=== PATIENT | female | born 1970 | race Caucasian/White ===

== ENCOUNTER 2022-01-14 19:48 | Outpatient (CLI) | payer OTHER, SELFPAY ==
--- NOTE | 2022-01-14 19:52 | US_ITS ---
STUDY: THYROID ULTRASOUND REASON FOR EXAM: Female, 51 years old. NODULE-RT TECHNIQUE: Ultrasound evaluation of the thyroid was performed with real-time and static long-scale imaging. COMPARISON: None. FINDINGS: RIGHT LOBE: The right lobe of the thyroid gland measures 4.8 cm x 2.7 cm x 2 cm. There is a homogeneous echotexture. There is a 3.3 cm x 2.6 x 1.7 cm complex solid and cystic nodule in the midpole of the right lobe. Biopsy is recommended. LEFT LOBE: The left lobe of the thyroid gland measures 3.2 cm x 0.9 cm x 0.7 cm. There is a homogeneous echotexture. There is a 1.2 cm x 0.7 cm x 0.6 cm solid and cystic nodule in the lower pole. Adjacent to this, there is a 6 mm x 6 mm x 4 mm solid/cystic nodule. ISTHMUS: The isthmus measures 3 mm. There is a 1.3 cm x 1 cm x 0.5 cm benign-appearing lymph node in the right cervical region. US/Thyroid IMPRESSION: Dominant complex solid and cystic nodule in the midportion of the right lobe of the thyroid. Biopsy recommended. Electronically Signed: Washington Martinez MD at 14:27 EDT ,
== END 2022-01-14 23:59 | disposition home or self-care (01) ==
LOC: US 19:51
PROVIDERS: Visit Provider Family Medicine
DX: E04.1 Nontoxic single thyroid nodule (principal); E03.9 Hypothyroidism, unspecified
CPT/HCPCS: 76536

== ENCOUNTER → 2022-02-09 | Outpatient (CLI) | payer OTHER, SELFPAY ==
[2022-02-09 15:06] LABS: Absolute Lymphocyte Count 2.46 X10^3/uL (0.83-4.51); Absolute Neutrophil Count 5.8 X10^3/uL (2.0-7.7); Basophil# 0.04 X10^3/uL; Basophil% 0.4 % (0-1); Eosinophil# 0.15 X10^3/uL; Eosinophils% 1.7 % (0-5); Lymphocyte # 2.46 X10^3/ul (0.83-4.51); Lymphocyte % 27.5 % (19-41); Mean Corp Hgb Conc 33.3 g/dL (32-36); Mean Corpuscular Hgb 32.3 pg (27.0-32.0); Mean Corpuscular Volume 96.8 fL (81-99); Mean Platelet Vol. 9.1 fl (6.2-12.0); Monocyte# 0.48 X10^3/uL; Monocyte% 5.4 % (0-10); NRBC Flagged by Analyzer 0 % (0-5); Neutrophil # 5.76 X10^3/uL (2.7-7.7); Neutrophil % 64.6 % (47-70); Platelet Count 348 K/mm3 (150-450); RBC Distribution Width CV 12.5 % (11.6-14.6); RBC Distribution Width SD 44.5 fl (35.1-43.9); Red Blood Count 4.03 M/mm3 (4.2-5.4); White Blood Count 8.9 K/mm3 (4.4-11.0)
[2022-02-09 15:37] LABS: Vitamin B12 1087 pg/mL (211-911); Vitamin D,25 Hydroxy 31.6 ng/mL
[2022-02-09 15:42] LABS: ALB/GLOB Ratio 0.9 RATIO (0.9-2.4); AST(SGOT) 14 U/L (15-37); Alanine Aminotransfer ALT/SGPT 25 U/L (13-56); Albumin, Serum 3.6 g/dL (3.2-5.0); Alkaline Phosphatase 63 U/L (45-117); Anion Gap 6 (5-15); BUN 12 mg/dL (7-18); BUN/Creat Ratio 19.1 RATIO (10-20); Calcium,Total 8.9 mg/dL (8.5-10.1); Chloride 107 mmol/L (98-107); Cholesterol 171 mg/dL (200); Creatinine, Serum 0.63 mg/dL (0.55-1.02); EST Glomerular Filtration Rate 107 mL/min (>60); Est Glom Filt Rate - Afr Amer 129 mL/min (>60); Globulin 3.8 g/dL (2.2-4.2); Glucose 89 mg/dL (74-106); High Density Lipoprotein 66 mg/dL; Potassium 3.9 mmol/L (3.5-5.1); Protein, Total 7.4 g/dL (6.4-8.2); Sodium Level 139 mmol/L (136-145); Triglycerides 72 mg/dL; Very Low Density Lipoprotein 14 mg/dL (5-40)
== END | disposition home or self-care (01) ==
LOC: LAB 14:26
PROVIDERS: Visit Provider Family Medicine
DX: R79.89 Other specified abnormal findings of blood chemistry (principal); D64.9 Anemia, unspecified; Z68.37 Body mass index [BMI] 37.0-37.9, adult; E66.9 Obesity, unspecified
CPT/HCPCS: 36415; 80053; 80061; 82306; 82607; 84443; 85025